=== PATIENT | female | born 2000 | race Two or more races ===

== ENCOUNTER 2020-07-20 16:26 | Emergency (ER) | payer OTHER ==
[~2020-07-20] VITALS: Ht 152.4 cm; Wt 56.7 kg
[2020-07-20] MEDS ORDERED: BACTRIM 400-801 EACH PO (21:44)
== END 2020-07-20 23:14 | disposition home or self-care (01) ==
LOC: ER 16:26
DX: N75.0 Cyst of Bartholin's gland (principal)

== ENCOUNTER 2021-05-07 18:56 | Inpatient (IN) | payer OTHER ==
[~2021-05-07] VITALS: Ht 152.4 cm; Wt 68.0 kg
[~2021-05-07 18:56] MED LIST: BACTRIM 400-801 EACH PO
[2021-05-07] MEDS ORDERED: PRENATAL TABLE1 EAC3 PO (19:09)
== END 2021-05-09 16:32 | disposition home or self-care (01) | DRG 833 ==
LOC: LDR 18:56
PROVIDERS: ADMIT Obstetrics & Gynecology Obstetrics; ATTEND Obstetrics & Gynecology Obstetrics
PROC: 4A1HXCZ Monitoring of Products of Conception, Cardiac Rate, External Approach (ICD-10-PCS; principal; 2021-05-07)
PROC: BY4FZZZ Ultrasonography of Third Trimester, Single Fetus (ICD-10-PCS; 2021-05-08)
PROC: BU4CYZZ Ultrasonography of Uterus and Ovaries using Other Contrast (ICD-10-PCS; 2021-05-08)
DX: O60.03 Preterm labor without delivery, third trimester (principal); O35.3XX0 Maternal care for (suspected) damage to fetus from viral disease in mother, not applicable or unspecified; O36.8130 Decreased fetal movements, third trimester, not applicable or unspecified; O35.0XX0 Maternal care for (suspected) central nervous system malformation in fetus, not applicable or unspecified; Z20.822 Contact with and (suspected) exposure to COVID-19; Z3A.32 32 weeks gestation of pregnancy

== ENCOUNTER 2021-06-05 18:05 | Inpatient (IN) | payer OTHER ==
[~2021-06-05] VITALS: Ht 152.4 cm; Wt 68.9 kg
[~2021-06-05 18:05] MED LIST changes: +PRENATAL TABLE1 EAC3 PO
[2021-06-05] MEDS ORDERED: TYLENOL ARTHRI650 MG PO (22:08)
== END 2021-06-08 17:08 | disposition home or self-care (01) | DRG 833 ==
LOC: OBS/DEL 18:05 → LDR 06-06 16:52 → OBS/DEL 06-06 16:52 → LDR 06-08 17:08
PROVIDERS: ADMIT Obstetrics & Gynecology Obstetrics; ATTEND Obstetrics & Gynecology Obstetrics
PROC: 4A1HXCZ Monitoring of Products of Conception, Cardiac Rate, External Approach (ICD-10-PCS; principal; 2021-06-06)
DX: O26.893 Other specified pregnancy related conditions, third trimester (principal); J11.1 Influenza due to unidentified influenza virus with other respiratory manifestations; Z20.822 Contact with and (suspected) exposure to COVID-19; Z3A.36 36 weeks gestation of pregnancy

== ENCOUNTER 2021-06-24 00:53 | Inpatient (IN) | payer OTHER ==
[~2021-06-24] VITALS: Ht 152.4 cm; Wt 68.5 kg
[~2021-06-24 00:53] MED LIST changes: +TYLENOL ARTHRI650 MG PO
== END 2021-06-26 11:12 | disposition home or self-care (01) | DRG 807 ==
LOC: OB/GYN 00:53 → LDR 00:53 → OB/GYN 10:51
PROVIDERS: ADMIT Obstetrics & Gynecology Obstetrics; ATTEND Obstetrics & Gynecology Obstetrics
PROC: 10E0XZZ Delivery of Products of Conception, External Approach (ICD-10-PCS; principal; 2021-06-24)
PROC: 0W8NXZZ Division of Female Perineum, External Approach (ICD-10-PCS; 2021-06-24)
PROC: 4A1HXCZ Monitoring of Products of Conception, Cardiac Rate, External Approach (ICD-10-PCS; 2021-06-24)
DX: O80 Encounter for full-term uncomplicated delivery (principal); Z37.0 Single live birth; Z3A.39 39 weeks gestation of pregnancy; Z20.822 Contact with and (suspected) exposure to COVID-19

== ENCOUNTER 2022-07-24 14:34 | Emergency (ER) | payer OTHER ==
[~2022-07-24] VITALS: Ht 157.5 cm; Wt 59.0 kg
[2022-07-24] MEDS ORDERED: PEPCID AC20 MG PO (20:02)
== END 2022-07-24 20:15 | disposition home or self-care (01) ==
LOC: ER 14:34
DX: O26.892 Other specified pregnancy related conditions, second trimester (principal); Z3A.19 19 weeks gestation of pregnancy; R10.13 Epigastric pain; Z88.8 Allergy status to other drugs, medicaments and biological substances

== ENCOUNTER 2022-07-29 16:07 | Outpatient (CLI) | payer OTHER ==
[~2022-07-29 16:07] MED LIST changes: +PEPCID AC20 MG PO
== END 2022-07-29 16:49 | disposition home or self-care (01) ==
LOC: PRENATAL 16:07
PROVIDERS: ATTEND Obstetrics & Gynecology Maternal & Fetal Medicine
DX: O35.9XX0 Maternal care for (suspected) fetal abnormality and damage, unspecified, not applicable or unspecified (principal); O35.3XX0 Maternal care for (suspected) damage to fetus from viral disease in mother, not applicable or unspecified; Z3A.20 20 weeks gestation of pregnancy

== ENCOUNTER 2022-10-24 10:54 | Outpatient (CLI) | payer OTHER | END 2022-10-24 11:47 | disposition home or self-care (01) | LOC: PRENATAL 10:54 | PROVIDERS: ATTEND Obstetrics & Gynecology Maternal & Fetal Medicine | DX: O26.849 Uterine size-date discrepancy, unspecified trimester (principal); O36.8199 Decreased fetal movements, unspecified trimester, other fetus; Z3A.32 32 weeks gestation of pregnancy ==

== ENCOUNTER 2022-12-17 18:51 | Inpatient (IN) | payer OTHER ==
[~2022-12-17] VITALS: Ht 152.4 cm; Wt 70.3 kg
[2022-12-17 20:13] LABS: PH,URINE 6.5 (5.0-8.0); URINE APPEARANCE Clear; URINE BILIRRUBIN Negative (NEGATIVE); URINE BLOOD Negative; URINE COLOR Yellow; URINE GLUCOSE Negative (NEGATIVE); URINE LEUKOCYTE Trace; URINE NITRATE Negative; URINE PROTEIN Negative (NEGATIVE)
[2022-12-17 20:15] LABS: HEMATOCRIT 34.3 % (36.0-45.00); HEMOGLOBIN 11.4 g/dL (12.0-15.00); MEAN CELL VOLUME 79.2 fL (80.00-100.00); MEAN CORPUSCULAR HEMOGLOBIN 26.3 pg (27.00-32.0); MEAN CORPUSCULAR HGB CONC 33.2 g/dl (32.0-36.0); PLATELET COUNT 314 K/uL (150-450); RED BLOOD COUNT 4.34 M/uL (4.00-6.00); RED CELL DISTRIBUTION WIDTH 14.3 % (11.5-14.5)
[2022-12-17 20:17] LABS: URINE BACTERIA 782.2 uL (0.0-1933); URINE EPITHELIAL CELLS 25.4 uL (0.0-38.8); URINE WBC 26.4 uL (0.0-23.2)
[2022-12-17 20:31] LABS: URINE RBC 0.4 uL (0.0-20.8)
[2022-12-17 20:34] LABS: INR < 0.93; PARTIAL THROMBOPLASTIN TIME 26.1 SECONDS (22.0-34.0); PROTHROMBIN TIME 9.8 SECONDS (9.0-11.5)
[2022-12-17 20:39] LABS: ALBUMIN 2.9 gm/dL (3.4-5.0); BILIRUBIN TOTAL 0.43 mg/dL (0.3-1.2); CALCIUM 9.3 mg/dL (8.5-10.1); CREATININE SERUM 0.59 mg/dL (0.55-1.02); GFR 126.31; GLOBULINA 4.1 G/DL (2.4-3.5); POTASSIUM 4.46 mEq/L (3.5-5.1)
[2022-12-19 05:05] LABS: HEMOGLOBIN 11.2 g/dL (12.0-15.00); MEAN CELL VOLUME 80.1 fL (80.00-100.00); MEAN CORPUSCULAR HEMOGLOBIN 26.5 pg (27.00-32.0); MEAN CORPUSCULAR HGB CONC 33.1 g/dl (32.0-36.0); PLATELET COUNT 276 K/uL (150-450); RED BLOOD COUNT 4.25 M/uL (4.00-6.00); RED CELL DISTRIBUTION WIDTH 14.1 % (11.5-14.5)
== END 2022-12-21 15:10 | disposition home or self-care (01) | DRG 807 ==
LOC: LDR 18:51 → OB/GYN 12-19 11:50
PROVIDERS: ADMIT Obstetrics & Gynecology Obstetrics; ATTEND Obstetrics & Gynecology Obstetrics
PROC: 4A1HXCZ Monitoring of Products of Conception, Cardiac Rate, External Approach (ICD-10-PCS; 2022-12-17)
PROC: 3E0P7VZ Introduction of Hormone into Female Reproductive, Via Natural or Artificial Opening (ICD-10-PCS; 2022-12-18)
PROC: 10E0XZZ Delivery of Products of Conception, External Approach (ICD-10-PCS; principal; 2022-12-19)
PROC: 3E033VJ Introduction of Other Hormone into Peripheral Vein, Percutaneous Approach (ICD-10-PCS; 2022-12-19)
DX: O62.3 Precipitate labor (principal); Z37.0 Single live birth; Z3A.40 40 weeks gestation of pregnancy; Z20.822 Contact with and (suspected) exposure to COVID-19

== ENCOUNTER 2023-03-24 15:00 | Day surgery (SDC) | payer OTHER ==
[2023-03-19 10:26] LABS: PH,URINE 5.5 (5.0-8.0); URINE APPEARANCE Clear; URINE BILIRRUBIN Negative (NEGATIVE); URINE BLOOD Negative; URINE COLOR Yellow; URINE GLUCOSE Negative (NEGATIVE); URINE LEUKOCYTE Negative; URINE NITRATE Negative; URINE PROTEIN Negative (NEGATIVE); URINE UROBILINOGEN 0.2 E.U./dl
[2023-03-19 10:31] LABS: HEMOGLOBIN 13.2 g/dL (12.0-15.00); MEAN CELL VOLUME 81.3 fL (80.00-100.00); MEAN CORPUSCULAR HEMOGLOBIN 26.9 pg (27.00-32.0); PLATELET COUNT 319 K/uL (150-450); RED BLOOD COUNT 4.92 M/uL (4.00-6.00); RED CELL DISTRIBUTION WIDTH 15.3 % (11.5-14.5)
[2023-03-19 10:31] LABS: URINE EPITHELIAL CELLS 4.7 uL (0.0-38.8); URINE WBC 5.5 uL (0.0-23.2)
[2023-03-19 10:59] LABS: INR 1.03; PARTIAL THROMBOPLASTIN TIME 36.8 SECONDS (22.0-34.0); PROTHROMBIN TIME 10.8 SECONDS (9.0-11.5)
[2023-03-19 11:02] LABS: ALBUMIN 4.4 gm/dL (3.4-5.0); BILIRUBIN TOTAL 0.31 mg/dL (0.3-1.2); CALCIUM 9.9 mg/dL (8.5-10.1); CREATININE SERUM 0.65 mg/dL (0.55-1.02); GFR 111.98; GLOBULINA 3.6 G/DL (2.4-3.5); POTASSIUM 4.27 mEq/L (3.5-5.1)
[2023-03-19 11:22] LABS: URINE RBC 0.7 uL (0.0-20.8)
[~2023-03-24] VITALS: Ht 152.4 cm; Wt 59.9 kg
== END 2023-03-24 19:15 | disposition home or self-care (01) ==
LOC: CIR.AMB 15:00
PROVIDERS: ATTEND Obstetrics & Gynecology Obstetrics
DX: Z30.2 Encounter for sterilization (principal); Z53.9 Procedure and treatment not carried out, unspecified reason